=== PATIENT | male | born 1985 | race Hispanic/Latino ===

== ENCOUNTER 2018-03-30 09:39 | Emergency (ER) | payer MEDICARE ==
[2018-03-30 09:50] VITALS: BMI 25.7
--- NOTE | 2018-03-30 09:52 | ED PDOC ---
Arrival/HPI - General Time Seen by Provider: 03/30/18 09:47 Historian: Patient - History of Present Illness Narrative History of Present Illness (Text): 03/30/18 09:49 32yo male with PMHx of Asperger's who present to Ed with complaint of left 3rd toe pain. Patient states he "stubbed" the toe 3days ago and again yesterday. The mother by the bedside states he had MRI of the foot last week after similar injury and it was negative. States patient was complaining of pain and his PMD referred him to ED for evaluation. He denies any other complaint. Did not take any medication for pain. Past Medical History - Provider Review Nursing Documentation Reviewed: Yes - Infectious Disease Hx of Infectious Diseases: None - Tetanus Immunization Tetanus Immunization: Unknown - Reproductive Currently Lactating: No - Past Medical History Past Medical History: No Previous - Musculoskeletal/Rheumatological Hx Falls: No - Psychiatric Hx Depression: No Hx Emotional Abuse: No Hx Physical Abuse: No Hx Substance Use: No Other/Comment: asperger's disease - Past Surgical History Past Surgical History: No Previous - Suicidal Assessment Feels Threatened In Home Enviroment: No Family/Social History - Physician Review Nursing Documentation Reviewed: Yes Family/Social History: Unknown Family HX Hx Alcohol Use: No Hx Substance Use: No Hx Substance Use Treatment: No Allergies/Home Meds Allergies/Adverse Reactions: Allergies No Known Allergies Allergy (Verified 09/02/13 16:15) Home Medications: Home Meds Medication Instructions Recorded Confirmed Cyclobenzaprine [Flexeril] 5 mg PO Q12 PRN 09/02/13 09/02/13 Naproxen Sodium [Aleve] 220 mg PO BID PRN 09/02/13 09/02/13 Review of Systems - Physician Review All systems were reviewed & negative as marked: Yes - Review of Systems Constitutional: Normal Eyes: Normal ENT: Normal Respiratory: Normal Cardiovascular: Normal Gastrointestinal: Normal Genitourinary Male: Normal Musculoskeletal: Arthralgias (LEft 3rd toe pain) Skin: Normal Neurological: Normal Endocrine: Normal Hemo/Lymphatic: Normal Psychiatric: Normal Physical Exam Vital Signs Reviewed: Yes Vital Signs Temp Pulse Resp BP Pulse Ox 03/30/18 11:45 69 18 122/79 100 03/30/18 09:41 97.8 F 76 18 100 Temperature: Afebrile Blood Pressure: Normal Pulse: Regular Respiratory Rate: Normal Appearance: Positive for: Well-Appearing, Non-Toxic, Comfortable Pain Distress: None Mental Status: Positive for: Alert and Oriented X 3 - Systems Exam Head: Present: Atraumatic, Normocephalic Pupils: Present: PERRL Extroacular Muscles: Present: EOMI Conjunctiva: Present: Normal Mouth: Present: Moist Mucous Membranes Neck: Present: Normal Range of Motion Respiratory/Chest: Present: Clear to Auscultation, Good Air Exchange. No: Respiratory Distress, Accessory Muscle Use Cardiovascular: Present: Regular Rate and Rhythm, Normal S1, S2. No: Murmurs Abdomen: No: Tenderness, Distention, Peritoneal Signs Back: Present: Normal Inspection Upper Extremity: Present: Normal Inspection. No: Cyanosis, Edema Lower Extremity: Present: NORMAL PULSES, Normal ROM, Tenderness (Left 3rd toe), Swelling (Left 3rd toe), Neurovascularly Intact. No: Edema, Erythema Neurological: Present: GCS=15, CN II-XII Intact, Speech Normal Skin: Present: Warm, Dry, Normal Color. No: Rashes Psychiatric: Present: Alert, Oriented x 3, Normal Insight, Normal Concentration Medical Decision Making ED Course and Treatment: 03/30/18 11:03 Left foot xray - No acute fracture noted. Toes tres taped. Ortho shoe given. Referred to gas treater - RAD Interpretation Radiology Orders: 03/30/18 09:48 FOOT LEFT 3RD DIGIT (TOE) [RAD] Stat - Medication Orders Current Medication Orders: Discontinued Medications Ibuprofen (Motrin Tab) 600 mg PO STAT STA Stop: 03/30/18 09:50 Last Admin: 03/30/18 10:32 Dose: Not Given Non-Admin Reason: Patient Refused Comments: as per pt and pts mother he's on a strict Ibuprofen 200mg order. already had 2 tablets of Ibuprofen 200mg PO at 0600. Disposition/Present on Arrival - Present on Arrival Any Indicators Present on Arrival: No History of DVT/PE: No History of Uncontrolled Diabetes: No Urinary Catheter: No History Surgical Site Infection Following: None - Disposition Have Diagnosis and Disposition been Completed?: Yes Diagnosis: Toe sprain Disposition: HOME/ ROUTINE Disposition Time: 11:05 Patient Plan: Discharge Condition: STABLE Discharge Instructions (ExitCare): Toe Injury (DC) Additional Instructions: Follow up with a gas treater Return to ED for any new or worsening symptoms Prescriptions: Ibuprofen [Motrin Tab] 600 mg PO Q6 #15 tab Referrals: Bashir Sneed DPM [Staff Provider] - Follow up with primary Forms: [employer] ([place])
[2018-03-30 10:28] VITALS: RESP 18; TEMP 97.8; O2SAT 100
--- NOTE | 2018-03-30 11:36 | RAD ---
PROCEDURE: Left foot, 3rd digit HISTORY: toe pain s/p trauma COMPARISON: None TECHNIQUE: Standard protocol for this study/examination. FINDINGS: No significant/acute osseous, articular or soft tissue abnormalities. IMPRESSION: No acute findings related to/accounting for the clinical presentation.
[2018-03-30 11:56] VITALS: BP 122/79; PULSE 69
== END 2018-03-30 11:45 | disposition home or self-care (01) ==
LOC: ED 09:39
DX: S93.505A Unspecified sprain of left lesser toe(s), initial encounter (principal); W23.0XXA Caught, crushed, jammed, or pinched between moving objects, initial encounter; F84.5 Asperger's syndrome

== ENCOUNTER 2018-10-18 15:58 | Outpatient (CLI) | payer MEDICARE | END 2018-10-18 15:59 | disposition home or self-care (01) | LOC: RAD 15:58 ==